=== PATIENT | female | born 1990 | race Caucasian/White ===

== ENCOUNTER 2024-02-02 09:00 | Day surgery (SDC) | payer OTHER ==
[~2024-02-02] VITALS: Ht 182.9 cm; Wt 102.0 kg
[~2024-02-02 09:00] MED LIST: MAGN400C PO; MELO7.5T35 PO; OMEGCAP9 PO; PROBCAP14 PO; THERTAB52 PO
[2024-02-02] MEDS ORDERED: LR 1,000 ML IV SCH ×2 (09:05→14:05)
[2024-02-02] MEDS ORDERED: NS 1,000 ML IV SCH (09:05)
[2024-02-02] MEDS ORDERED: LIDOCAINE 1% SDV 5ML VIAL SC PRN (09:05)
[2024-02-02 10:17] LABS: HEMATOCRIT 42.4 % (36.0-47.0); HEMOGLOBIN 14.4 g/dl (12.0-15.5); MEAN CORPUSCULAR VOLUME 91.2 fl (80.0-96.0); PLATELET COUNT, AUTOMATED 325 10^3/uL (150-450); RED BLOOD COUNT 4.65 10^6/uL (4.00-5.40); WHITE BLOOD COUNT 7.2 10^3/uL (4.0-10.0)
[2024-02-02 10:50] LABS: HCG, SERUM QUALITATIVE NEGATIVE (NEGATIVE)
[2024-02-02] MEDS: SCOPOLAMINE 1MG TRANSDERMAL PATCH TOP ONE (10:57)
[2024-02-02] MEDS ORDERED: ROCURONIUM BROMIDE 50MG/5ML VIAL As Ordered ONE (12:21)
[2024-02-02] MEDS ORDERED: MIDAZOLAM INJ 2MG/2ML VIAL As Ordered ONE (12:21)
[2024-02-02] MEDS ORDERED: KETOROLAC 60MG 2ML VIAL As Ordered ONE (12:21)
[2024-02-02] MEDS ORDERED: ONDANSETRON 4MG 2ML VIAL As Ordered ONE (12:21)
[2024-02-02] MEDS ORDERED: fentaNYL 250 MCG/5 ML INJECTION As Ordered ONE (12:21)
[2024-02-02] MEDS ORDERED: propofoL 200 MG/20 ML VIAL As Ordered ONE (12:21)
[2024-02-02] MEDS ORDERED: LIDOCAINE 2% 100MG/5ML SDV (FOR ANES.) As Ordered ONE (12:21)
[2024-02-02] MEDS ORDERED: dexmedeTOMIDine (4MCG/ML)200MCG/50ML BTL (PRECEDEX) As Ordered ONE (12:30)
[2024-02-02] MEDS ORDERED: ACETAMINOPHEN 1000MG 100ML IV BAG As Ordered ONE (13:46)
[2024-02-02] MEDS ORDERED: SUGAMMADEX SODIUM 500 MG/5 ML VIAL (BRIDION) As Ordered ONE (13:46)
[2024-02-02] MEDS ORDERED: ONDANSETRON 4MG 2ML VIAL IV PRN (14:05)
[2024-02-02] MEDS ORDERED: HYDROMORPHONE HCL 0.5 MG/ 0.5 ML SYRINGE IV PRN (14:05)
[2024-02-02] MEDS ORDERED: fentaNYL 100 MCG/2 ML INJECTION IV PRN (14:05)
[2024-02-02] MEDS ORDERED: oxyCODONE 5MG TAB PO PRN (14:05)
[2024-02-02 14:55] VITALS: BP 110/59; TEMP 98; O2SAT 6
[2024-02-06 16:39] LABS: HPV APTIMA Not Detected (Not Detected)
== END 2024-02-02 15:33 | disposition home or self-care (01) ==
LOC: M SDC 09:00
PROVIDERS: ATTEND Student in an Organized Health Care Education/Training Program
DX: Z30.2 Encounter for sterilization (principal); R87.615 Unsatisfactory cytologic smear of cervix; Z79.899 Other long term (current) drug therapy
CPT/HCPCS: 36415; 58661; 84703; 85027; 86850; 86900; 86901; 87624; 88302; G0123; J0131; J0665; J1100; J1885; J2250; J2405; J3010